=== PATIENT | female | born 1995 | race Caucasian/White ===

== ENCOUNTER 2019-06-11 16:54 | Emergency (ER) | payer OTHER, SELFPAY ==
[2019-06-11 17:37] VITALS: BP 102/72; PULSE 78; RESP 16; TEMP 36.6; O2SAT 100; BMI 18.7
--- NOTE | 2019-06-11 18:38 | ED_ITS ---
Entered by Ilene Doan, acting as scribe for Ashly Stafford MD Jun 11, 2019 16:54 HPI - General Adult General: Chief complaint: General Medical Stated complaint: Rabies shots Time Seen by Provider: 06/11/19 18:28 Source: patient Mode of arrival: ambulatory Limitations: no limitations History of Present Illness: HPI narrative: 24 yo female presents with exposure to a sick dog and they are worried about rabies. no current wounds or laceration. complaint: exposed to sick dog Onset (ago): minute(s) (just pilot captain) Location: upper extremity Severity: moderate Relieving factors: none Exacerbating factors: none Associated symptoms: Reports no associated symptoms; Deny chest pain, dyspnea, headache(s), nausea, rash or vomiting Treatments prior to arrival: none Review of Systems Const: Denies: fever, chills, body aches or change in appetite Eyes: Denies: blurry vision or eye discomfort ENMT: Denies: throat pain or dental pain Card: Denies: chest pain Resp: Denies: shortness of breath GI: Denies: abdominal pain, nausea, vomiting or diarrhea : Denies: painful urination Musc: Denies: neck pain or back pain Skin/Breast: Denies: rash Neuro: Denies: headache Psych: Denies: depression Peng/Lymph: Denies: easy bruising All/Imm: Denies: hives PFSH ED PFSH: Statuses (acute, chronic, etc) shown below reflect problem list status as previously entered and may not be historically accurate Social History Smoking and tobacco status: never smoked Female Reproductive History: Date of last menstrual period: 05/20/19 Physical Exam Const: COMMON NORMALS: no apparent distress, oriented x3 and healthy appearing HENMT: COMMON NORMALS: normocephalic and head/scalp atraumatic HEAD & SCALP: normocephalic and atraumatic Eye: COMMON NORMALS: PERRL and EOMs intact bilaterally PUPIL: Yes PERRL Neck/C-Spine: COMMON NORMALS: full ROM and supple Chest: COMMONS NORMALS: inspection of chest normal Resp: COMMON NORMALS: normal respiratory effort, no retractions and no use of accessory muscles Cardio: COMMON NORMALS: regular rate and regular rhythm RATE: regular rate RHYTHM: regular rhythm GI: COMMON NORMALS: normal to inspection, nondistended, normoactive bowel sounds Extremity: COMMON NORMALS: normal to inspection and full ROM Neuro: COMMON NORMALS: oriented x3, moves all extremities and no focal motor deficits Psych: COMMON NORMALS: mental status grossly normal, thought process normal and cooperative THOUGHT PROCESS: normal thought process Skin: COMMON NORMALS: no rashes or lesions noted and no wounds GENERAL SKIN EXAM: no rashes or lesions noted Course Vital Signs: Vital signs: Vital Signs Temperature 98 F 06/11/19 17:37 Pulse Rate 78 06/11/19 17:37 Respiratory Rate 16 06/11/19 17:37 Blood Pressure 102/72 06/11/19 17:37 Pulse Oximetry 100 06/11/19 17:37 MDM - General Adult MDM Narrative: Medical decision making narrative: Patient presents here with possible rabies exposure. Will vaccinate and they are to return to continue the vaccination. Patient stable for discharge at this point. Discharge Plan Discharge Patient Disposition: Home, Self-Care Clinical Impression: Rabies, unspecified Qualifiers: Rabies type: unspecified Qualified Code(s): A82.9 - Rabies, unspecified Condition: Stable Discharge Orders: Discharge Order (Routine); Ordered 06/11/19 Ordered By: Ashly Stafford Referrals: Teo Desir FNP [Primary Care Provider] - Discharge Diet: Advance as tolerated Discharge Activity: Resume usual activity Patient Instructions: Rabies Vaccine (Injection), Rabies Immune Globulin (Injection) Coding Level of Care Code ED Bulk Pigment Reducer for Chg Fwd Exam Problem Focused The documentation recorded by the Franki sheriff Bridget Annette, accurately reflects the service I personally performed and the decisions made by Nydia flores Korby, MD Jun 11, 2019 16:54
[2019-06-11] MEDS: rabies vaccine 2.5 unit SDV IM (20:36)
== END 2019-06-11 20:10 | disposition home or self-care (01) ==
PROVIDERS: Emergency Provider Emergency Medicine; Family Provider Nurse Practitioner Family; PCP Nurse Practitioner Family
DX: Z29.14 Encounter for prophylactic rabies immune globulin (principal); Z20.3 Contact with and (suspected) exposure to rabies
CPT/HCPCS: 90375; 90471; 90472; 90675; 99281; 99283

== ENCOUNTER → 2020-05-12 13:55 | Outpatient (BNVA) | payer MEDICAID, SELFPAY | PROVIDERS: Family Provider Nurse Practitioner Family; Visit Provider Nurse Practitioner Women's Health | DX: O09.30 Supervision of pregnancy with insufficient antenatal care, unspecified trimester (principal); Z78.9 Other specified health status; Z3A.00 Weeks of gestation of pregnancy not specified | CPT/HCPCS: 80307; 84315; 85027; 86592; 86762; 86803; 86850; 86900; 87086; 87340; 87806 ==

== ENCOUNTER → 2020-05-19 15:00 | Outpatient (BNVA) | payer MEDICAID, SELFPAY | PROVIDERS: Family Provider Nurse Practitioner Family; Visit Provider Obstetrics & Gynecology | DX: O09.30 Supervision of pregnancy with insufficient antenatal care, unspecified trimester (principal); Z3A.00 Weeks of gestation of pregnancy not specified | CPT/HCPCS: 84315; 87491; 87591; 88175 ==

== ENCOUNTER → 2020-07-28 11:18 | Outpatient (BNVA) | payer MEDICAID, SELFPAY | PROVIDERS: Family Provider Nurse Practitioner Family; Visit Provider Obstetrics & Gynecology | DX: Z34.02 Encounter for supervision of normal first pregnancy, second trimester (principal) | CPT/HCPCS: 82950; 84315; 85027 ==

== ENCOUNTER 2020-09-07 04:39 | Outpatient (CLI) | payer MEDICAID, SELFPAY ==
[2020-09-07] VITALS (64 sets, daily range): BP systolic 118–163; BP diastolic 59–90; PULSE 88–127; RESP 17–18; TEMP 36.7; O2SAT 97–100; BMI 24.9
[2020-09-07] MEDS: lactated ringers 1,000 ML 999 ML IV (05:31)
[2020-09-07] MEDS: NIFEdipine 10 mg Capsule 30 MG PO (06:26)
[2020-09-07] MEDS: dextrose 5%-sod chloride 0.9% 1,000 ML 125 ML IV (06:38)
[2020-09-07] MEDS: ondansetron 2 mg/ML SDV 2 mL 4 MG IVP (07:57)
[2020-09-07] MEDS: betamethasone susp 6 mg/mL 5 mL 12 MG IM (14:35)
== END 2020-09-07 14:46 | disposition home or self-care (01) ==
LOC: OPOB 04:43 → OBGYN 04:45
PROVIDERS: Family Provider Nurse Practitioner Family; Visit Provider Obstetrics & Gynecology
DX: O26.899 Other specified pregnancy related conditions, unspecified trimester (principal); Z3A.00 Weeks of gestation of pregnancy not specified; R10.9 Unspecified abdominal pain
CPT/HCPCS: 36415; 59025; 96360; 96361; 96372; 99211; J0702; J2405

== ENCOUNTER 2020-09-08 15:10 | Outpatient (CLI) | payer MEDICAID, SELFPAY ==
[2020-09-08] MEDS: betamethasone susp 6 mg/mL 5 mL 12 MG IM (15:20)
[2020-09-08 15:43] VITALS: BMI 25.2
== END 2020-09-08 15:24 | disposition home or self-care (01) ==
LOC: OPOB 15:13 → OBGYN 15:14
PROVIDERS: Family Provider Nurse Practitioner Family; Visit Provider Obstetrics & Gynecology
DX: O26.899 Other specified pregnancy related conditions, unspecified trimester (principal); Z3A.00 Weeks of gestation of pregnancy not specified
CPT/HCPCS: 96372; 99211; J0702

== ENCOUNTER → 2020-09-20 08:11 | Outpatient (BNVA) | payer MEDICAID, SELFPAY | PROVIDERS: Family Provider Nurse Practitioner Family; Visit Provider Obstetrics & Gynecology | DX: Z34.02 Encounter for supervision of normal first pregnancy, second trimester (principal) | CPT/HCPCS: 81000; 87081 ==

== ENCOUNTER → 2020-10-11 13:09 | Outpatient (BNVA) | payer MEDICAID, SELFPAY | PROVIDERS: Family Provider Nurse Practitioner Family; Visit Provider Obstetrics & Gynecology | DX: Z34.02 Encounter for supervision of normal first pregnancy, second trimester (principal); Z20.822 Contact with and (suspected) exposure to COVID-19 | CPT/HCPCS: 84315; 87635 ==

== ENCOUNTER 2020-10-19 22:44 | Inpatient (IN) | payer MEDICAID, SELFPAY ==
[2020-10-19] VITALS (7 sets, daily range): BP systolic 132–166; BP diastolic 72–92; PULSE 76–85; RESP 16–17; TEMP 36.5
[2020-10-19 23:00] LABS: Add Urine Microscopic? NO; Charge for UA Resulting for Rev
[2020-10-19 23:06] LABS: Bilirubin Urine Neg (Negative); Blood Urine Neg (Negative); Glucose Urine UA Norm (Normal); Ketones Urine Negative (Negative); Leukocyte Esterase Urine Negative (Negative); Nitrate Urine Negative (Negative); Protein Urine Neg (Negative); Urine Appearance Clear (CLEAR); Urine Color Straw (Yellow); Urobilinogen Urine Norm (Negative); pH Urine 7 (5-7)
--- NOTE | 2020-10-19 23:09 | PM.OPHPUD ---
Labor & Delivery H&P Update Date of Procedure: October 20, 2020 Date H&P Performed: 10/19/20 H&P update information: I have reviewed H&P completed within last 30 days, I have examined patient prior to procedure and No changes to prior documentation Admission Diagnosis:
[2020-10-19] MEDS: fentaNYL 50 mcg/mL INJ 2mL IVP (23:21)
[2020-10-19 23:26] LABS: Urine Creatinine 55 mg/dL (28-217); Urine Protein Random 10 mg/dL
[2020-10-19 23:32] LABS: Basophils % 0.3 %; Eosinophils # 0.1 10^3/uL (0.0-0.8); Eosinophils % 0.8 %; Hematocrit 36.2 % (37.0-47.0); Lymphocytes % 16.5 %; Mean Corpuscular HGB Conc 33.1 g/dL (30.0-36.0); Mean Corpuscular Volume 84.6 fL (81-99); Mean Platelet Volume 10.4 fL (7.4-10.4); Monocytes % 7.9 %; Neutrophils # 8.86 10^3/uL (1.8-7.7); Neutrophils % 73.4 %; Nucleated Red Blood Cells % 0 %; Platelet Count 296 10^3/cmm (130-400); Red Blood Count 4.28 10^6/uL (4.1-5.3); Red Cell Distribution Width 13.7 % (12.1-15.1); White Blood Count 12.1 10^3/uL (4.0-10.0)
[2020-10-19 23:36] LABS: UPRO/UCREAT Ratio 0.18 mg/mg CR
[2020-10-19] MEDS: lactated ringers 1,000 ML 999 ML IV (23:43)
[2020-10-19 23:49] LABS: Alanine Aminotransferase 14 U/L (0-33); Albumin Level 3.2 g/dL (3.5-5.2); Alkaline Phosphatase 188 IU/L (35-105); Anion Gap 17.7 (5-19); Aspartate Amino Transferase 21 U/L (0-32); Blood Urea Nitrogen 7 mg/dL (6-20); Calcium 9.3 mg/dL (8.5-10.5); Carbon Dioxide 20 mmol/L (22-29); Chloride 103 mmol/L (98-107); Globulin 2.8 g/dL (1.3-4.6); Glomerular Filtration Rate 152.9 mL/min (90-130); Glucose 109 mg/dL (65-115); Osmolality Calculated 283 mOsm/kg (285-295); Potassium 3.7 mmol/L (3.5-5.1); Sodium 137 mmol/L (136-145); Total Bilirubin 0.2 mg/dL (0.15-1.2); Uric Acid 4.3 mg/dL (2.4-5.7)
[2020-10-19] MEDS: ondansetron 2 mg/ML SDV 2 mL 4 MG IVP (23:59)
[2020-10-20] VITALS (24 sets, daily range): BP systolic 121–149; BP diastolic 60–86; PULSE 64–89; RESP 15–17; TEMP 36.5–37.1; BMI 24.7
[2020-10-20] MEDS: fentaNYL 50 mcg/mL INJ 2mL IVP (00:38)
[2020-10-20] MEDS: dextrose 5%-lactated ringers 1,000 ML 125 ML IV (01:34)
[2020-10-20] MEDS: oxytocin 30 UNIT/500 ML BAG 600 UNIT IV (03:05)
[2020-10-20] MEDS: lidocaine 2% INJ 20 mL INJECTION (03:07)
--- NOTE | 2020-10-20 03:29 | PM.DELIVERY ---
Delivery Note: Date of delivery: October 20, 2020 Pre-delivery diagnoses: IUP at 40 6/7, spontaneous labor Post-delivery diagnoses: same Procedure: Op report anesthesia: None Delivering Physician: pauline Estimated blood loss (mL): 50 Findings: Term female in the RAMIRO presentation with compound right hand Pre-Delivery Course: The patient presented to labor and delivery in active labor. She had SROM at 9 cm dilation and progressed to complete Delivery: The patient had complete cervical dilation and began to push. The head delivered in the RAMIRO position, with a compound arm, over an intact perineum under no anesthesia. The nose and mouth were bulb suctioned. The shoulders and body delivered atraumatically. The baby was placed onto the mother's abdomen. The cord was clamped and cut. Cord blood was obtained. The placenta delivered spontaneously. It was inspected and found to be intact. Inspection of the perineum revealed a second-degree perineal laceration. This was repaired in the usual fashion. Estimated blood loss 50 mL. Apgars on baby were 9 at 1 minute and 9 at 5 minutes. Weight of baby is 7 pounds 7 ounces. Mother and baby were stable post delivery. Coding Level of Care Code Acute Medication Coordinator for María Silvestre
[2020-10-20] MEDS: benzocaine-menthol 78 gm Canister 1 SPRAY TOPICAL (05:02)
[2020-10-20] MEDS: lanolin oint 7 gm 1 APPLIC TOPICAL (05:02)
[2020-10-20] MEDS: prenatal vitamin Capsule 1 CAP PO (09:37)
[2020-10-20] MEDS: docusate sodium 100 mg Capsule PO (09:37)
[2020-10-20] MEDS: ibuprofen 800 mg tablet PO ×3 (09:37→20:45)
[2020-10-20 17:18] LABS: Hematocrit 37.4 % (37.0-47.0); Hemoglobin 12.1 g/dL (11.5-15.3); Mean Corpuscular HGB Conc 32.4 g/dL (30.0-36.0); Mean Corpuscular Hemoglobin 27.8 pg (28.0-34.0); Mean Platelet Volume 10.4 fL (7.4-10.4); Platelet Count 270 10^3/cmm (130-400); Red Blood Count 4.35 10^6/uL (4.1-5.3); White Blood Count 15.9 10^3/uL (4.0-10.0)
[2020-10-21 04:05] VITALS: BP 126/81; PULSE 94
--- NOTE | 2020-10-21 07:48 | PM.DCS ---
Discharge Providers Date of Admission: 10/19/20 22:44 Date of Discharge: October 21, 2020 Attending Provider at Admission: Aliza Gonzalez MD Attending Provider at Discharge: Aliza Gonzalez MD Diagnoses at Discharge Discharge Diagnosis (1) state: Status: Acute Reason for Visit Reason for Visit: contractions Hospital Course Hospital Course The patient presented in active labor. She had spontaneous delivery of a term female . she did well and was ready for discharge on PPD#1 Physical Exam Narrative: EXAM NARRATIVE: The patient is doing well this morning, without complaints. Const: COMMON NORMALS: no acute distress, average body habitus, patient oriented x3 and no limitations GENERAL APPEARANCE: cooperative, comfortable, well kempt and well developed ORIENTATION/CONSCIOUSNESS: Yes awake, Yes oriented to person, Yes oriented to place and Yes oriented to time Resp: COMMON NORMALS: normal respiratory effort EFFORT & INSPECTION: Yes able to speak in complete sentences Extremity: COMMON NORMALS: no clubbing, cyanosis or edema and no calf tenderness Neuro: COMMON NORMALS: patient oriented x3 SENSORIUM/ORIENTATION: Yes oriented to person, Yes oriented to place and Yes oriented to time Psych: APPEARANCE: Yes well kempt Discharge Data Data Completed and Pending: Labs from last 24 hours 10/20/20 16:35 WBC 15.9 H RBC 4.35 Hgb 12.1 Hct 37.4 MCV 86.0 MCH 27.8 L MCHC 32.4 RDW 14.0 Plt Count 270 MPV 10.4 Vitals: Last Vital Signs Temp 98.6 F 10/20/20 15:57 Pulse 94 10/21/20 04:05 Resp 15 10/20/20 03:33 BP 126/81 10/21/20 04:05 Discharge Plan Discharge Patient Disposition: Home Condition: Stable Prescriptions: Continued prenat.vits,isis,[id number] Tablet 1 tab PO DAILY RF: 0 Discharge Orders: Discharge Order (Routine); Ordered 10/21/20 Ordered By: Aliza Gonzalez Patient Instructions: Depression (GEN), Pre-eclampsia and Eclampsia (DC), Bleeding (DC), OB Discharge Report, OB Food/Drug Interaction Guide, Opioid Safety, OB Home Care, OB Proud Parent Packet, OB Vaginal Deliveries - [facility] Discharge Attestations Time Spent in Discharge Care*: less than 30 min Quality Metrics Clinical Quality Measures During this hospital stay, did patient experience: None Coding Level of Care Code Acute Chg FW DC note Diagnoses state Z39.2
[2020-10-21 09:13] VITALS: BP 139/67; PULSE 93; TEMP 36.6
[2020-10-21] MEDS: docusate sodium 100 mg Capsule PO (09:29)
[2020-10-21] MEDS: ibuprofen 800 mg tablet PO (09:29)
[2020-10-21] MEDS: prenatal vitamin Capsule 1 CAP PO (09:29)
[2020-10-21 09:44] VITALS: BP 139/67; PULSE 93; RESP 16; TEMP 36.6
--- NOTE | 2020-10-21 15:49 | PC.NURSE ---
THIS DOMAIN ARCHITECT PRINTED OFF HOME CARE INSTRUCTIONS PRIOR TO PUTTING IN DOCTOR'S APPOINTMENT TIME IN SO I WENT IN AND UNCHECKED EVERYTHING BUT PAGE THAT HAD HER APPOINTMENT ON IT. BUT PATIENT DID GET PRINTED EDUCATION SHEETS. JORGE LUIS LANDEROS RN WENT OVER THEM WITH HER AT DISCHARGE.
== END 2020-10-21 10:10 | disposition home or self-care (01) | DRG 807 ==
LOC: OPOB 22:44 → OBGYN 22:44
PROVIDERS: Admitting Provider Obstetrics & Gynecology; Visit Provider Obstetrics & Gynecology
DX: O70.1 Second degree perineal laceration during delivery (principal); Z37.0 Single live birth; Z3A.40 40 weeks gestation of pregnancy
CPT/HCPCS: 36415; 59025; 59409; 80053; 81003; 82570; 84156; 84315; 84550; 85025; 85027; 87635; 98960; 99211; J2405; J3010